=== PATIENT | female | born 1980 | race African-American/Black ===

== ENCOUNTER 2016-11-13 19:49 | Emergency (ER) | payer OTHER, MEDICAID ==
[~2016-11-13] VITALS: Ht 160 cm; Wt 84.4 kg
[~2016-11-13 19:49] MED LIST: CIPROFLOXACIN500 M2 ORAL; NORCO 5-325 TA1 EACH ORAL
[2016-11-13] MEDS ORDERED: NKM (20:05)
[2016-11-13 20:13] VITALS: BP 147/84
[2016-11-13] MEDS ORDERED: Lidocaine 1% MPF 10mg/ml 5ml IM ONE (21:00)
--- NOTE | 2016-11-13 21:23 | Emergency Room Report ---
History of Present Illness General Chief Complaint: Female Urogenital Problems Source: Patient Present Illness HPI 36-year-old female presents to the emergency department complaining of vaginal discharge with male alert x3 weeks. Patient also reports frequency and urgency with urination and progressive vaginal odor x5 months status post delivery. Patient denies fevers, chills, nausea, vomiting, abdominal pain. Patient reports recent unprotected intercourse with a new partner. She denies joint pain, vaginal bleeding or rashes. Pt. denies breast feeding, but reports continued . Patient reports intermittent dysuria. Pt. is all normal vaginal deliveries with no complications other than two premies. Denies recent antibiotic use. Denies CP, Palpitations, LOC, AMS, dizziness, Changes in Vision, Sensation, paresthesias, or a sudden severe headache. Allergies: Coded Allergies: AMOXICILLIN (Verified Allergy, Unknown, 05/04/13) PENICILLINS (Verified Allergy, Unknown, 05/04/13) Patient History Past Medical History: see triage record Past Surgical History: none Pertinent Family History: none Last Menstrual Period: May 08, 2016 Now: No : 11 Para: 11 Immunizations: UTD Reviewed Nursing Documentation: PMH: Agreed, PSxH: Agreed Nursing Documentation-PMH Past Medical History: No History, Except For Hx Asthma: Yes Review of Systems All Other Systems: negative except mentioned in HPI Physical Exam Vital Signs Date Time Temp Pulse Resp B/P (MAP) Pulse Ox O2 Delivery O2 Flow Rate FiO2 11/13/16 19:58 98.1 84 18 147/84 100 Room Air Sp02 EP Interpretation: reviewed, normal General Appearance: no apparent distress, alert, GCS 15, non-toxic Head: normocephalic, atraumatic Eyes: bilateral eye normal inspection, bilateral eye PERRL ENT: hearing grossly normal, normal voice Neck: full range of motion Respiratory: lungs clear, normal breath sounds, speaking full sentences Cardiovascular #1: regular rate, rhythm Gastrointestinal: normal bowel sounds, non tender, soft, no guarding, no rebound Rectal: deferred Genitourinary: normal inspection, no CVA tenderness, adnexa normal, ext genitalia/vag normal, os closed, urethra normal, other - Negatvie CMT, no erythema of the cervix, milky yellow-green vaginal d/c noted on PE, no bleeding , swelling, lesions noted. Musculoskeletal: back normal, gait/station normal, normal range of motion, non- tender Neurologic: alert, oriented x3, responsive, motor strength/tone normal, sensory intact, speech normal Psychiatric: judgement/insight normal, memory normal, mood/affect normal Skin: normal color, no rash, warm/dry, well hydrated Lymphatic: no adenopathy Medical Decision Making PA Attestation Dr. Solo is my supervising Physician whom patient management has been discussed with. Diagnostic Impression: Primary Impression: Positive urine test Additional Impressions: Bacterial vaginosis Yeast vaginitis ER Course 36-year-old female presents to the emergency department complaining of vaginal discharge with male alert x3 weeks. Patient also reports frequency and urgency with urination and progressive vaginal odor x5 months status post delivery. Patient denies fevers, chills, nausea, vomiting, abdominal pain. Patient reports recent unprotected intercourse with a new partner. She denies joint pain, vaginal bleeding or rashes. Pt. denies breast feeding, but reports continued . Patient reports intermittent dysuria. Pt. is all normal vaginal deliveries with no complications other than two premies. Denies recent antibiotic use. Denies CP, Palpitations, LOC, AMS, dizziness, Changes in Vision, Sensation, paresthesias, or a sudden severe headache. Ddx considered but are not limited to UTi , STI, G & C, trichomonas, Vaginitis , cervicitis, bartholin gland cyst or cellulitis, . Vital signs: are WNL, pt. is afebrile H&PE are most consistent with vaginal d/c with recent unprotected intercourse with new partner. ORDERS: - UA: unremarkable- no evidence of acute infection of the urine or urinary tract. -Urine Hcg: Positive -Vaginal Wet Mount Prep: Few Clue Cells, yeast, moderate bacteria ED INTERVENTIONS: -250mg Rocephin IM -1 gram Azithromycin PO d/w pt. to follow up with OBGYN for management. DISCHARGE: At this time pt. is stable for d/c to home. Will provide printed patient care instructions, and any necessary prescriptions. Care plan and follow up instructions have been discussed with the patient prior to discharge. Labs Test 11/13/16 20:45 Urine Color Pale yellow Urine Appearance Clear Urine pH 6.5 (4.5-8.0) Urine Specific [place] 1.010 (1.005-1.035) Urine Protein Negative (NEGATIVE) Urine Glucose (UA) Negative (NEGATIVE) Urine Ketones Negative (NEGATIVE) Urine Occult Blood 2+ (NEGATIVE) Urine Nitrite Negative (NEGATIVE) Urine Bilirubin Negative (NEGATIVE) Urine Urobilinogen Normal MG/DL (0.0-1.0) Urine Leukocyte Esterase 2+ (NEGATIVE) Urine RBC 5-10 /HPF (0 - 2) Urine WBC 2-4 /HPF (0 - 2) Urine Squamous Epithelial Cells Few /LPF (NONE/OCC) Urine Bacteria Few /HPF (NONE) Urine HCG, Qualitative Positive Last Vital Signs Date Time Temp Pulse Resp B/P (MAP) Pulse Ox O2 Delivery O2 Flow Rate FiO2 11/13/16 20:13 98.1 18 147/84 100 Room Air 11/13/16 19:58 84 Disposition: HOME, SELF-CARE Condition: Stable Scripts Cmb#95/Iron/Fa/Dha ( + DHA COMBO PACK) 1 Each Combo..pkg 1 EACH PO DAILY for 30 Days, #1 PACK Prov: Lindsay Oneill 11/13/16 Fluconazole (FLUCONAZOLE) 100 Mg Tablet 100 MG ORAL DAILY for 3 Days, #3 TAB 0 Refills Prov: Lindsay Oneill 11/13/16 Metronidazole* (FLAGYL*) 500 Mg Tablet 500 MG ORAL BID for 7 Days, #14 TAB 0 Refills Prov: Lindsay Oneill. 11/13/16 Patient Instructions: Bacterial Vaginosis, [id number], First Trimester of , [id number], Vaginal Yeast Infection, Adult Additional Instructions: Take medications as directed. Follow up with a Primary Care Provider in 3-5 days, even if your symptoms have resolved. --Please review list of primary care clinics, if you do not already have a primary care provider FOLLOW UP WITH OBGYN FOR POSITIVE RESULTS Return sooner to ED if new symptoms occur, or current symptoms become worse. - Please note that this Emergency Department Report was dictated using i-nexushose suspender cutter technology software, occasionally this can lead to erroneous entry secondary to interpretation by the dictation equipment. Lindsay Oneill Nov 13, 2016 21:23
[2016-11-13 21:28] LABS: APPEARANCE,URINE CLEAR; KETONES,URINE NEGATIVE (NEGATIVE); LEUKOCYTE ESTERASE ,URINE 2+ (NEGATIVE); NITRITE,URINE NEGATIVE (NEGATIVE); PH,URINE 6.5 (4.5-8.0); PROTEIN,URINE NEGATIVE (NEGATIVE); UROBILINOGEN,URINE NORMAL MG/DL (0.0-1.0)
[2016-11-13 21:53] LABS: BACTERIA,URINE FEW /HPF; SQUAMOUS EPITHELIAL CELL,UR FEW /LPF (NONE/OCC)
[2016-11-13] MEDS ORDERED: PRENATAL + DHA1 EAC2 PO (21:56)
[2016-11-13] MEDS ORDERED: FLUCONAZOLE100 MG ORAL (21:56)
[2016-11-13] MEDS ORDERED: METRONIDAZOLE500 MG ORAL (21:56)
[2016-11-13 22:00] VITALS: BP 147/84
[2016-11-13] MEDS ORDERED: Azithromycin 250mg tab ORAL ONE (22:00)
== END 2016-11-13 22:00 | disposition home or self-care (01) ==
LOC: EMR 20:30
DX: O23.599 Infection of other part of genital tract in pregnancy, unspecified trimester (principal); Z3A.00 Weeks of gestation of pregnancy not specified; Z88.0 Allergy status to penicillin; Z88.8 Allergy status to other drugs, medicaments and biological substances
CPT/HCPCS: 81003; 81025; 87210; 96372; 99284; J0696